=== PATIENT | male | born 1990 | race Two or more races ===

== ENCOUNTER 2020-04-03 19:16 | Emergency (ER) | payer MEDICAID ==
[~2020-04-03] VITALS: Ht 172.7 cm; Wt 88.0 kg
[2020-04-03] MEDS ORDERED: KETOROLAC 30MG/ML VIAL IM ONE (20:00)
[2020-04-03 20:37] VITALS: BP 128/69
== END 2020-04-03 20:38 | disposition home or self-care (01) ==
LOC: ER 19:16
DX: R51.9 Headache, unspecified (principal); J45.909 Unspecified asthma, uncomplicated
CPT/HCPCS: 96372; 99283; J1885

== ENCOUNTER 2021-02-19 12:07 | Emergency (ER) | payer MEDICAID ==
[~2021-02-19] VITALS: Ht 177.8 cm; Wt 100.0 kg
[2021-02-19 12:58] VITALS: BP 118/77
== END 2021-02-19 17:49 | disposition left against medical advice (07) ==
LOC: ER 12:07
DX: Z53.21 Procedure and treatment not carried out due to patient leaving prior to being seen by health care provider (principal); I49.9 Cardiac arrhythmia, unspecified
CPT/HCPCS: 93005